=== PATIENT | male | born 1980 | race African-American/Black ===

== ENCOUNTER 2021-05-21 15:21 | Emergency (ER) | payer SELFPAY ==
--- OUTSIDE RECORDS SUMMARY | 2021-05-21 15:23 | XMS REPORT | Continuity of Care Document ---
:1980 Author Organization [facility] t Address [address] [place] [address] [place] [id number] Care Team Providers Name Role Phone Unavailable Unavailable Unavailable Payers Payer Name Policy Type Policy Number Effective Date Expiration Date S ource Problems This patient has no known problems. Allergies, Adverse Reactions, Alerts Allergy Allergy Status Severity Reaction(s) Onset Inactive Treating Comm ents Source Name Type Date Date Clinician No Known DA Active U 2017-07 [facility]05 [facility] Medications This patient has no known medications. Procedures This patient has no known procedures. Results This patient has no known results.
[2021-05-21] MEDS ORDERED: KETOROLAC 30 MG/ML INJ ONE (15:56)
[2021-05-21 16:07] LABS: Absolute Lymphocytes (CBC) 1.9 K/uL (0.7-4.9); Basophils % 0.5 % (0-1.3); Hematocrit 49.3 % (39.6-49.0); Lymphocytes % 25.1 % (15.3-44.8); MPV 8.5 fL (7.6-11.3); RBC Red Blood Cell Count 5.49 M/uL (4.33-5.43)
[2021-05-21 16:53] LABS: Urine Blood Negative (Negative); Urine Glucose Negative (Negative); Urine Protein Negative (Negative); Urine Specific Gravity 1.025 (1.005-1.030); Urine pH 7.5 (5.0-7.0)
--- NOTE | 2021-05-21 17:03 | RAD REPORT ---
EXAM DESCRIPTION: CT - Stone Protocol - 05/21/2021 4:42 pm CLINICAL HISTORY: FLANK PAIN COMPARISON: No comparisons TECHNIQUE: Axial 3 mm thick images were obtained without oral or IV contrast. The [id number] span s the entirety of the system including uppermost abdomen and lung bases. All CT scans are performed using dose optimization technique as appropriate and may include automated exposure control or mA/KV adjustment according to patient size. FINDINGS: No hydronephrosis is present and no obstructing ureteral calculi. No suspicious renal mass es. Isodense masses and pyelonephritis are not excluded on a stone protocol CT scan. No significant a drenal finding. Urinary bladder is contracted limiting assessment. No bladder calculus seen. No stran ding or edema in the fatty tissues adjacent to the. Imaged portions of the liver, spleen and pancreas show no suspicious findings on non-contrast imaging . Cholecystectomy clips are present. No biliary tree dilatation. No suspicious bowel findings. No appendicitis. No hernia, mass or bulky lymphadenopathy noted. No free air, free fluid or inflammatory stranding. No acute bone finding. Patient has advanced for age facet joint degenerative change on the right at L 5-S1. IMPRESSION: No hydronephrosis, obstructing calculus or acute finding. Isodense masses and pyelonephritis are not excluded on stone protocol technique. No appendicitis or acute GI finding. Advanced for age degenerative change right L5-S1 facet joint.
--- NOTE | 2021-05-21 17:08 | ER ---
Nurse's Notes [facility] Name: Anderson Brooks Jr Age: 41 yrs Sex: Male : 1980 Arrival Date: 05/21/2021 Time: 15:22 Bed 6 Private MD: Diagnosis: Flank Pain;Essential (primary) hypertension Presentation: 05/21 15:43 Chief complaint: Patient states: right flank pain X 1 week. Coronavirus screen: At this iw time, the client does not indicate any symptoms associated with coronavirus-19. Ebola Screen: Patient negative for fever greater than or equal to 101.5 degrees Fahrenheit, and additional compatible Ebola Virus Disease symptoms Patient denies exposure to infectious person. Patient denies travel to an Ebola-affected area in the 21 days before illness onset. No symptoms or risks identified at this time. Initial Sepsis Screen: Does the patient meet any 2 criteria? No. Patient's initial sepsis screen is negative. Does the patient have a suspected source of infection? No. Patient's initial sepsis screen is negative. Risk Assessment: Do you want to hurt yourself or someone else? Patient reports no desire to harm self or others. Onset of symptoms was May 14, 2021. 15:43 Method Of Arrival: Ambulatory iw 15:43 Acuity: AIDEN 3 iw Historical: - Allergies: 15:44 No Known Allergies; iw - Home Meds: 15:44 unknown blood pressure medication [Active]; iw - PMHx: 15:44 Hypertension; ap3 15:44 Hypertension; iw - PSHx: 15:44 Cholecystectomy; iw - Immunization history:: Client reports having NOT received the Covid vaccine. Client reports having NOT received the Covid vaccine. - Social history:: Smoking status: Patient reports the use of cigarette tobacco products, smokes one-half pack cigarettes per day, Smoking status: . Screenin:44 Abuse screen: Denies threats or abuse. Nutritional screening: No deficits noted. ap3 Tuberculosis screening: No symptoms or risk factors identified. Fall Risk None identified. Assessment: 15:42 General: Appears in no apparent distress. uncomfortable, Behavior is calm, cooperative. ap3 Pain: Complains of pain in low back area Pain currently is 10 out of 10 on a pain scale. Pain began gradually, 2-3 days ago. Neuro: Level of Consciousness is awake, alert, obeys commands. Cardiovascular: Patient's skin is warm and dry. Respiratory: Airway is patent Respiratory effort is even, unlabored, Respiratory pattern is regular, symmetrical. : Reports pain in right flank(s). 16:16 Reassessment: Patient and/or family updated on plan of care and expected duration. Pain ap3 level reassessed. Patient is alert, oriented x 3, equal unlabored respirations, skin warm/dry/pink. visitor is at the patients bedside. Vital Signs: 15:45 BP 189 / 124; Pulse 68; Resp 16; Temp 99.0; Pulse Ox 100% on R/A; Weight 106.59 kg; iw Height 5 ft. 7 in. (170.18 cm); 16:24 BP 166 / 113; Pulse 62; Resp 15; Pulse Ox 99% ; jl7 16:54 BP 170 / 111; Pulse 63; Pulse Ox 100% on R/A; ap3 17:46 BP 116 / 114; Pulse 65; Pulse Ox 100% on R/A; ap3 15:45 Body Mass Index 36.81 (106.59 kg, 170.18 cm) iw ED Course: 15:22 Patient arrived in ED. am2 15:37 [facility] kb 15:37 César Romero MD is Attending Physician. kb 15:42 Radha Charles, VINAYAK is Primary Nurse. ap3 15:44 Triage completed. iw 15:44 Arm band placed on right wrist. ap3 15:44 Patient has correct armband on for positive identification. Pulse ox on. NIBP on. Door ap3 closed. Noise minimized. 16:00 Inserted saline lock: 20 gauge in right antecubital area, using aseptic technique. ap3 Blood collected. 16:41 CT Stone Protocol In Process Unspecified. EDMS 17:45 No provider procedures requiring assistance completed. IV discontinued, intact, ap3 bleeding controlled, No redness/swelling at site. Pressure dressing applied. Administered Medications: 16:00 Drug: Ketorolac 30 mg Route: IVP; Site: right antecubital; ap3 16:53 Follow up: Response: No adverse reaction; Pain is decreased ap3 17:44 Drug: cloNIDine 0.1 mg Route: PO; ap3 17:44 Follow up: Response: No adverse reaction ap3 17:44 Drug: [place] (HYDROcodone-acetaminophen) (7.5 mg-325 mg) 1 tabs {Note: RASS 0.} Route: ap3 PO; 17:44 Follow up: Response: No adverse reaction ap3 Outcome: 17:08 Discharge ordered by MD. salazar 17:45 Discharged to home ambulatory, with friend. ap3 17:45 Condition: good 17:45 Discharge instructions given to patient, family, Instructed on discharge instructions, follow up and referral plans. medication usage, Demonstrated understanding of instructions, follow-up care, medications, Prescriptions given X 2. 17:48 Patient left the ED. ap3 Signatures: Dispatcher [employer] EDMS Hailey Hines, FABRICATION MIG WELDER-C FABRICATION MIG WELDER-CkBecky Lipscomb RN Jaclyn Rosenthal RN RN jl7 Radha Encinas Amanda, RN RN ap3
--- NOTE | 2021-05-21 17:08 | EDPHYS ---
Physician Documentation [facility] Name: Anderson Brooks Jr Age: 41 yrs Sex: Male : 1980 Arrival Date: 05/21/2021 Time: 15:22 Bed 6 Private MD: ED Physician César Romero HPI: 05/21 16:16 This 41 yrs old Black Male presents to ER via Ambulatory with complaints of Flank Pain. kb 16:16 The patient complains of pain in the left flank. The pain does not radiate. Onset: The kb symptoms/episode began/occurred 1 week(s) ago, and became worse. Modifying factors: The symptoms are alleviated by nothing. the symptoms are aggravated by movement, palpation/percussion. Associated signs and symptoms: The patient has no apparent associated signs or symptoms. Severity of pain: At its worst the pain was moderate in the emergency department the pain is unchanged. The patient has not experienced similar symptoms in the past. The patient has not recently seen a physician. Historical: - Allergies: 15:44 No Known Allergies; iw - Home Meds: 15:44 unknown blood pressure medication [Active]; iw - PMHx: 15:44 Hypertension; ap3 15:44 Hypertension; iw - PSHx: 15:44 Cholecystectomy; iw - Immunization history:: Client reports having NOT received the Covid vaccine. Client reports having NOT received the Covid vaccine. - Social history:: Smoking status: Patient reports the use of cigarette tobacco products, smokes one-half pack cigarettes per day, Smoking status: . ROS: 16:16 Constitutional: Negative for fever, chills, and weight loss. kb 16:16 : Positive for flank pain. 16:16 All other systems are negative. Exam: 16:16 Constitutional: This is a well developed, well nourished patient who is awake, alert, kb and in no acute distress. Head/Face: Normocephalic, atraumatic. ENT: Moist Mucous membranes Respiratory: Respirations even and unlabored. No increased work of breathing, no retractions or nasal flaring. Abdomen/GI: Soft, non-tender. No distention Skin: Warm, dry with normal turgor. Normal color. MS/ Extremity: Pulses equal, no cyanosis. Neurovascular intact. Full, normal range of motion. Neuro: Awake and alert, GCS 15, oriented to person, place, time, and situation. Moves all extremities. Normal gait. Psych: Awake, alert, with orientation to person, place and time. Behavior, mood, and affect are within normal limits. 16:16 Back: CVA tenderness, that is mild, is noted on the left. Vital Signs: 15:45 BP 189 / 124; Pulse 68; Resp 16; Temp 99.0; Pulse Ox 100% on R/A; Weight 106.59 kg; iw Height 5 ft. 7 in. (170.18 cm); 16:24 BP 166 / 113; Pulse 62; Resp 15; Pulse Ox 99% ; jl7 16:54 BP 170 / 111; Pulse 63; Pulse Ox 100% on R/A; ap3 17:46 BP 116 / 114; Pulse 65; Pulse Ox 100% on R/A; ap3 15:45 Body Mass Index 36.81 (106.59 kg, 170.18 cm) iw MDM: 15:37 Patient medically screened. kb 16:17 Data reviewed: vital signs, nurses notes. Data interpreted: Pulse oximetry: on room air kb is 100 %. Interpretation: normal. 17:05 Counseling: I had a detailed discussion with the patient and/or guardian regarding: the kb historical points, exam findings, and any diagnostic results supporting the discharge/admit diagnosis, lab results, radiology results, the need for outpatient follow up, a family practitioner, to return to the emergency department if symptoms worsen or persist or if there are any questions or concerns that arise at home. ED course: Pt is asymptomatic of blood pressure. States he is supposed to take lisinopril/hctz and clonidine, but hasn't for months. Educated on need for BP management and risks of uncontrolled htn. Verbal understanding received. . 05/21 15:40 Order name: Basic Metabolic Panel; Complete Time: 16:27 kb 05/21 15:40 Order name: CBC with Diff; Complete Time: 16:16 kb 05/21 15:40 Order name: CT Stone Protocol; Complete Time: 17:05 kb 05/21 16:53 Order name: Urine Dipstick-Ancillary; Complete Time: 16:53 EDMS 05/21 15:40 Order name: IV Saline Lock; Complete Time: 16:08 kb 05/21 15:40 Order name: Labs collected and sent; Complete Time: 16:08 kb 05/21 15:40 Order name: Urine Dipstick-Ancillary (obtain specimen); Complete Time: 16:53 kb Administered Medications: 16:00 Drug: Ketorolac 30 mg Route: IVP; Site: right antecubital; ap3 16:53 Follow up: Response: No adverse reaction; Pain is decreased ap3 17:44 Drug: cloNIDine 0.1 mg Route: PO; ap3 17:44 Follow up: Response: No adverse reaction ap3 17:44 Drug: [place] (HYDROcodone-acetaminophen) (7.5 mg-325 mg) 1 tabs {Note: RASS 0.} Route: ap3 PO; 17:44 Follow up: Response: No adverse reaction ap3 Disposition: 18:01 Co-signature as Attending Physician, César Romero MD. rn Disposition Summary: 05/21/21 17:08 Discharge Ordered Location: Home kb Condition: Stable kb Diagnosis - Flank Pain kb - Essential (primary) hypertension kb Followup: kb - With: Private Physician - When: 2 - 3 days - Reason: Recheck today's complaints, Continuance of care, Re-evaluation by your physician Followup: kb - With: Emergency Department - When: As needed - Reason: Worsening of condition Discharge Instructions: - Discharge Summary Sheet kb - Hypertension, Adult, [id number] kb - Flank Pain, Adult, [id number] kb - Managing Your Hypertension kb Forms: - Medication Reconciliation Form kb - Thank You Letter kb - Antibiotic Education kb - Prescription Opioid Use kb Prescriptions: - Cyclobenzaprine 10 mg Oral Tablet - take 1 tablet by ORAL route every 8 hours As needed; 21 tablet; Refills: 0, kb Product Selection Permitted - Diclofenac Sodium 75 mg Oral tablet,delayed release (DR/EC) - take 1 tablet by ORAL route 2 times per day As needed; 30 tablet; Refills: 0, kb Product Selection Permitted Signatures: Dispatcher [employer] Hailey Drew, PADMINI IBARRA-Becky Link RN RN iw Nieto, Roman, MD MD rn Prokisch, Amanda, RN RN ap3
[2021-05-21] MEDS ORDERED: cloNIDine HCL 0.1 MG TAB ONE (17:38)
[2021-05-21] MEDS ORDERED: HYDROCODONE/APAP 7.5/325 MG TAB ONE (17:38)
[2021-05-21 18:40] VITALS: TEMP 99
[2021-05-21 18:43] VITALS: O2SAT 100
[2021-05-21 18:44] VITALS: BP 116/114
== END 2021-05-21 17:48 | disposition home or self-care (01) ==
LOC: ER 15:21
DX: R10.9 Unspecified abdominal pain (principal); I10 Essential (primary) hypertension
CPT/HCPCS: 36415; 74176; 76377; 80048; 81003; 85025; 96374; 99284